=== PATIENT | male | born 1975 | race Hispanic/Latino ===

== ENCOUNTER 2017-03-23 20:04 | Emergency (ER) | payer SELFPAY ==
[2017-03-23 20:34] VITALS: PULSE 84; RESP 18; TEMP 98.7; O2SAT 97
--- NOTE | 2017-03-23 21:05 | ED PDOC ---
HPI: Dental Pain/Injury Time Seen by Provider: 03/23/17 20:46 Chief Complaint (Nursing): Dental Pain Chief Complaint (Provider): Toothache History Per: Patient History/Exam Limitations: no limitations Onset/Duration Of Symptoms: Other (1 year) Current Symptoms Are (Timing): Still Present Additional Complaint(s): Krael Mcgowan Jr, a 41 year old male, present to the ED for a toothache. The patient states that for the past year he has had pain on and off to the right lower jaw. He states that the pain has worsened over the past several days and he has taken tylenol with no relief. Past Medical History Reviewed: Historical Data, Nursing Documentation, Vital Signs Vital Signs: Last Vital Signs Temp 98.7 F 03/23/17 20:31 Pulse 84 03/23/17 20:31 Resp 18 03/23/17 20:31 BP 149/105 H 03/23/17 20:31 Pulse Ox 97 03/23/17 20:31 - Medical History PMH: No Chronic Diseases - Surgical History Surgical History: No Surg Hx - Family History Family History: States: Unknown Family Hx - Home Medications Home Medications: Ambulatory Orders Medication Instructions Recorded Penicillin VK [Pen-Vee K] 500 mg PO Q6 #12 tab 03/23/17 Tramadol HCl [Ultram] 50 mg PO BID PRN #6 tablet 03/23/17 - Allergies Allergies/Adverse Reactions: Allergies Allergy/AdvReac Type Severity Reaction Status Date / Time No Known Allergies Allergy Verified 03/23/17 20:31 Review of Systems Constitutional: Positive for: Other (Denies numbness and tingling.). Negative for: Fever ENT: Positive for: Other (Toothache) Physical Exam - Reviewed Nursing Documentation Reviewed: Yes Vital Signs Reviewed: Yes - Physical Exam Appears: Positive for: Non-toxic, No Acute Distress Head Exam: Positive for: ATRAUMATIC, NORMOCEPHALIC ENT: Positive for: Other (Right mandibular pre molar tooth with dental fracture without dentin exposure, no gingival swelling.) Neurologic/Psych: Positive for: Alert, Oriented - ECG O2 Sat by Pulse Oximetry: 97 (RA) Pulse Ox Interpretation: Normal - Progress ED Course And Treament: Repeat BP: 145/74 Medical Decision Making Medical Decision Makin:46 Initial Impression: 41 year old female present with tooth pain Initial Plan: * Toradol 15mg IM Scribe Attestation Documented by Jory Culver acting as a scribe for Brooks Condon PA-C. Provider Attestation: All medical record entries made by the Scribe were at my direction and personally dictated by me. I have reviewed the chart and agree that the record accurately reflects my personal performance of the history, physical exam, medical decision making, and the department course for this patient. I have also personally directed, reviewed, and agree with the discharge instructions and disposition. Disposition - Clinical Impression Clinical Impression: Toothache - Patient ED Disposition Is Patient to be Admitted: No - Disposition Referrals: [facility] [Outside] Disposition: Routine/Home Disposition Time: 22:00 Condition: STABLE Additional Instructions: Follow up with dentist in 2 days for further evaluation. Prescriptions: Penicillin VK [Pen-Vee K] 500 mg PO Q6 #12 tab Tramadol HCl [Ultram] 50 mg PO BID PRN #6 tablet PRN Reason: Other Instructions: Toothache (ED) Print Language: PASHTO
[2017-03-23 22:31] VITALS: BP 145/74
== END 2017-03-23 22:17 | disposition home or self-care (01) ==
LOC: H.ER 20:04
DX: K08.89 Other specified disorders of teeth and supporting structures (principal)
CPT/HCPCS: 96372; 99282; J1885

== ENCOUNTER 2017-04-04 16:41 | Emergency (ER) | payer MEDICAID ==
[2017-04-04] MEDS ORDERED: Sodium Chloride 0.9% 1,000 ML IV STA (17:08)
--- NOTE | 2017-04-04 17:13 | ED PDOC ---
HPI: General Adult Time Seen by Provider: 04/04/17 16:58 Chief Complaint (Nursing): Shortness Of Breath Chief Complaint (Provider): Lightheadedness History Per: Patient History/Exam Limitations: no limitations Onset/Duration Of Symptoms: Days (4 days) Have you had recent travel within the past 21 days to any of the following countries: [place], [place], [place] or [place]?: Yes Other Location:: [place] to [place] Current Symptoms Are (Timing): Still Present Severity: Moderate Additional Complaint(s): Karel Mcgowan is a 41 year old male, with no pertinent past medical history, who presents to the emergency department for the evaluation of lightheadedness, that the patient has been experiencing for the past 4 days. Associated intermittent dyspnea and subjective arm numbness are currently present. Of note, patient recently traveled from [place] to [place] 7 days ago. PMD: none specified NIHSS Stroke Scale - Date/Time Evaluation Performed When Was NIHSS Performed: Baseline - How Severe is the Stroke Level of Consciousness: 0=Alert LOC to Questions: 0=Both comments correct LOC to commands: 0=Obeys both correctly Best Gaze: 0=Normal Visual: 0=No visual loss Facial: 0=Normal Motor Arm - Left: 0=No drift Motor Arm - Right: 0=No drift Motor Leg - Left: 0=No drift Motor Leg - Right: 0=No drift Limb Ataxia: 0=Absent Sensory: 0=Normal Best Language: 0=No aphasia Dysarthia: 0=Normal articulation Extinction & Inattention (Neglect): 0=Normal, no object Score: 0 Severity Of Stroke: 0 = No Stroke Past Medical History Reviewed: Historical Data, Nursing Documentation, Vital Signs Vital Signs: Last Vital Signs Temp 97.5 F L 04/04/17 16:51 Pulse 79 04/04/17 16:51 Resp 15 04/04/17 17:19 BP 126/74 04/04/17 16:51 Pulse Ox 100 04/04/17 17:23 - Medical History PMH: Post Traumatic Stress Disorder - Surgical History Surgical History: No Surg Hx - Family History Family History: States: No Known Family Hx - Social History Current smoker - smoking cessation education provided: Yes (ongoing for 30 years ) Alcohol: None Drugs: Denies - Home Medications Home Medications: Ambulatory Orders Medication Instructions Recorded Penicillin VK [Pen-Vee K] 500 mg PO Q6 #12 tab 03/23/17 Tramadol HCl [Ultram] 50 mg PO BID PRN #6 tablet 03/23/17 - Allergies Allergies/Adverse Reactions: Allergies Allergy/AdvReac Type Severity Reaction Status Date / Time No Known Allergies Allergy Verified 03/23/17 20:31 Review of Systems ROS Statement: Except As Marked, All Systems Reviewed And Found Negative Cardiovascular: Positive for: Light Headedness Respiratory: Positive for: Shortness of Breath Neurological: Positive for: Numbness (b/l arms, subjective) Physical Exam - Reviewed Nursing Documentation Reviewed: Yes Vital Signs Reviewed: Yes - Physical Exam Appears: Positive for: Well, Non-toxic, No Acute Distress Head Exam: Positive for: ATRAUMATIC, NORMOCEPHALIC Skin: Positive for: Normal Color, Warm, Dry Eye Exam: Positive for: EOMI, Normal appearance, PERRL Cardiovascular/Chest: Positive for: Regular Rate, Rhythm. Negative for: Murmur Respiratory: Positive for: Normal Breath Sounds. Negative for: Respiratory Distress Extremity: Positive for: Normal ROM, Other (upper and lower extremities, sensations intact) Neurologic/Psych: Positive for: Alert, Oriented - Laboratory Results Result Diagrams: 04/04/17 17:48 04/04/17 17:48 - ECG O2 Sat by Pulse Oximetry: 100 (RA) Pulse Ox Interpretation: Normal - Radiology X-Ray: Interpreted by Ar X-Ray Interpretation: No Acute Disease - CT Scan/US CT head Other Rad Studies (CT/US): Radiology Report Reviewed (No acute intracranial pathology identified. Mild mucosal thickening of the ethmoid air cells and left frontal sinus.) Medical Decision Making Medical Decision Makin:58 Initial Impression: Lightheadedness, intermittent dyspnea Initial Plan: * CT Head w/o Contrast * Chest X-Ray * Electrocardiogram * Complete Blood Count * Comprehensive Metabolic Panel * Prothrombin Time * Partial Thromboplastin Time * D Dimer * Sodium Chloride 0.9% 1,000 ml IV at 1,000 mls/hr * Reevaluation Scribe Attestation: Documented by Kolby Guerrero, acting as a scribe for Jessie Christianson MD. Provider Scribe Attestation: All medical record entries made by the Scribe were at my direction and personally dictated by me. I have reviewed the chart and agree that the record accurately reflects my personal performance of the history, physical exam, medical decision making, and the department course for this patient. I have also personally directed, reviewed, and agree with the discharge instructions and disposition. Disposition - Clinical Impression Clinical Impression: Lightheadedness - Patient ED Disposition Is Patient to be Admitted: No - Disposition Referrals: [facility] [Outside] [facility] [Outside] Disposition: Routine/Home Disposition Time: 18:50 Condition: IMPROVED Instructions: [place] (ED)
--- NOTE | 2017-04-04 17:41 | CT ---
PROCEDURE: CT HEAD WITHOUT CONTRAST. HISTORY: Dizziness COMPARISON: None available. TECHNIQUE: Axial computed tomography images were obtained through the head/brain without intravenous contrast. Radiation dose: Total exam DLP = 874.91 MGy-cm. This CT exam was performed using one or more of the following dose reduction techniques: Automated exposure control, adjustment of the mA and/or kV according to patient size, and/or use of iterative reconstruction technique. FINDINGS: HEMORRHAGE: No intracranial hemorrhage. BRAIN: No mass effect or edema. The negro-white matter differentiation appears intact. Please note that MRI with diffusion imaging is more sensitive in the detection of acute ischemic event. VENTRICLES: No hydrocephalus. CALVARIUM: Unremarkable. PARANASAL SINUSES: Mild mucosal thickening of the ethmoid air cells and left frontal sinus. MASTOID AIR CELLS: Unremarkable as visualized. No inflammatory changes. OTHER FINDINGS: None. IMPRESSION: No acute intracranial pathology identified. Mild mucosal thickening of the ethmoid air cells and left frontal sinus.
[2017-04-04 17:59] LABS: BASO # 0.1 K/uL (0.0-0.2); BASO % 0.8 % (0.0-2.0); EOS # 0.4 K/uL (0.0-0.7); EOS % 6.2 % (0.0-4.0); LYMPH # 1.7 K/uL (1.0-4.3); LYMPH % 23.1 % (20.0-40.0); MEAN CELL VOLUME 96.3 fl (80.0-94.0); MEAN CORPUSCULAR HEMOGLOBIN 34.1 pg (27.0-31.0); MEAN CORPUSCULAR HGB CONC 35.4 g/dL (33.0-37.0); MEAN PLATELET VOLUME 7.3 fl (7.2-11.7); MONO # 0.5 K/uL (0.0-0.8); MONO % 7.4 % (0.0-10.0); NEUT # 4.5 K/uL (1.8-7.0); NEUT % 62.5 % (50.0-75.0); RED CELL DISTRIBUTION WIDTH 12.3 % (11.5-14.5); WHITE BLOOD COUNT 7.2 K/uL (4.8-10.8)
[2017-04-04 18:21] LABS: ALB/GLOB RATIO 1.7 (1.0-2.1); ALKALINE PHOSPHATASE 42 U/L (38-126); ALT/SGPT 93 U/L (21-72); AST/SGOT 43 U/L (17-59); BILIRUBIN,TOTAL 0.4 mg/dl (0.2-1.3); BLOOD UREA NITROGEN 9 mg/dl (9-20); CALCIUM 9.3 mg/dL (8.4-10.2); CARBON DIOXIDE 28 mmol/L (22-30); CHLORIDE 103 mmol/L (98-107); GFR AFRICAN-AMERICAN > 60; GLUCOSE,RANDOM 103 mg/dL (75-110); SODIUM 140 mmol/l (132-148); TOTAL PROTEIN 6.8 G/DL (6.3-8.2)
[2017-04-04 18:24] LABS: PARTIAL THROMBOPLASTIN TIME 28.7 Seconds (25.6-37.1)
[2017-04-04 19:16] VITALS: BP 122/72; PULSE 63; RESP 16; TEMP 97.7; O2SAT 99
--- NOTE | 2017-04-05 11:07 | RAD ---
HISTORY: SOB COMPARISON: No prior. TECHNIQUE: Chest PA and lateral FINDINGS: LUNGS: No active pulmonary disease. PLEURA: No significant pleural effusion identified. No pneumothorax apparent. CARDIOVASCULAR: Normal. OSSEOUS STRUCTURES: No significant abnormalities. VISUALIZED UPPER ABDOMEN: Normal. OTHER FINDINGS: None. IMPRESSION: No active disease.
--- NOTE | 2017-04-05 16:46 | CARD ---
APPROVED REPORT EKG Measurement Heart [id number] <Conclusion> Normal sinus rhythm Left axis deviation Abnormal ECG
== END 2017-04-04 19:15 | disposition home or self-care (01) ==
LOC: H.ER 16:41
DX: R42 Dizziness and giddiness (principal); R06.02 Shortness of breath; F43.10 Post-traumatic stress disorder, unspecified; R06.00 Dyspnea, unspecified